=== PATIENT | male | born 1975 | race Caucasian/White ===

== ENCOUNTER 2021-06-03 09:17 | Outpatient (CLI) | payer OTHER, SELFPAY ==
--- NOTE | 2021-06-03 08:45 | DI.RAD_ITS ---
Exam(s) XR ELBOW RT LIMITED EXAM: XR ELBOW RT LIMITED CLINICAL HISTORY: Rupture tendon. TECHNIQUE: 2D digital imaging was performed. COMPARISON: No exams were available for comparison FINDINGS: BONES: No acute fracture is present. No bony destructive lesion is seen. Mild spurring coronoid proc ess and both epicondyles. JOINTS: The elbow is normally aligned. No joint effusion is seen. SOFT TISSUE: Posterior soft tissue swelling.. IMPRESSION: Mild degenerative changes. Posterior soft tissue swelling.. DATA REPOSITORY: RADIATION DOSE DELIVERED:
== END 2021-06-03 09:18 | disposition home or self-care (01) ==
LOC: DIORS 09:19
PROVIDERS: PCP Nurse Practitioner; Referring Provider Nurse Practitioner; Visit Provider Student in an Organized Health Care Education/Training Program
DX: M25.521 Pain in right elbow; M79.89 Other specified soft tissue disorders; M19.021 Primary osteoarthritis, right elbow; S46.211D Strain of muscle, fascia and tendon of other parts of biceps, right arm, subsequent encounter
CPT/HCPCS: 73070